=== PATIENT | female | born 1995 ===

== ENCOUNTER 2017-05-21 10:42 | Emergency (ER) | payer BC, OTHER ==
--- NOTE | 2017-05-21 11:29 | UC ---
Lower Extremity/Ankle HPI - HPI Summary HPI Summary: 3 weeks ogo L posterior ankle pain and Achilles tightness---no specific injury had been running alot prior to the development of the pain, not gait abnormalities - History of Current Complaint Chief Complaint: UCLowerExtremity Stated Complaint: ANKLE PAIN Time Seen by Provider: 05/21/17 11:24 Hx Obtained From: Patient Hx Last Menstrual Period: 04/24/17 ?: No Onset/Duration: Gradual Onset, Lasting Weeks - 3, Still Present Severity Initially: Mild Severity Currently: Mild Pain Intensity: 2 Pain Scale Used: 0-10 Numeric Aggravating Factor(s): Standing, Ambulation Alleviating Factor(s): Rest, Ice Able to Bear Weight: Yes - Allergies/Home Medications Allergies/Adverse Reactions: Allergies Allergy/AdvReac Type Severity Reaction Status Date / Time Gluten Meal Allergy Nausea Verified 05/21/17 10:46 bleach Allergy Rash Uncoded 05/21/17 10:46 Home Medications: Home Medications NK [No Home Medications Reported] 05/21/17 [History Confirmed 05/21/17] PMH/Surg Hx/FS Hx/Imm Hx Previously Healthy: Yes - Surgical History Surgical History: Yes Surgery Procedure, Year, and Place: kidney surgery at age 3 months - Family History Known Family History: Positive: None Family History: no cardiovascular issues reported in family lineage - Social History Occupation: Student Lives: With Family Alcohol Use: None Substance Use Type: None Smoking Status (MU): Never Smoked Tobacco Review of Systems Constitutional: Negative Skin: Negative Eyes: Negative ENT: Negative Respiratory: Negative Cardiovascular: Negative Gastrointestinal: Negative Genitourinary: Negative Motor: Negative Neurovascular: Negative Musculoskeletal: Myalgia - L posterior calf just above achellies, posterior lateral ankle as well Neurological: Negative Psychological: Negative All Other Systems Reviewed And Are Negative: Yes Physical Exam Triage Information Reviewed: Yes Appearance: Well-Appearing, No Pain Distress, Well-Nourished Vital Signs: Initial Vital Signs Temp 98 F 05/21/17 10:48 Pulse 67 05/21/17 10:48 Resp 16 05/21/17 10:48 BP 132/63 05/21/17 10:48 Pulse Ox 100 05/21/17 10:48 Vital Signs Reviewed: Yes Eye Exam: Normal Eyes: Positive: Conjunctiva Clear ENT Exam: Normal ENT: Positive: Normal ENT inspection, Hearing grossly normal. Negative: Nasal congestion, Nasal drainage, Trismus, Muffled/hoarse voice Dental Exam: Normal Neck exam: Normal Neck: Positive: Supple, Nontender Respiratory Exam: Normal Respiratory: Positive: Chest non-tender, No respiratory distress, No accessory muscle use Cardiovascular Exam: Normal Cardiovascular: Positive: RRR, Pulses Normal, Brisk Capillary Refill Musculoskeletal Exam: Normal Musculoskeletal: Positive: Strength Intact, ROM Intact, No Edema Neurological Exam: Normal Neurological: Positive: Alert, Muscle Tone Normal Psychological Exam: Normal Skin Exam: Normal Lower Extremity Course/Dx - Course Course Of Treatment: TEJINDER, Cam Boot, follow with ortho this comming week, NSAIDS - Differential Dx/Diagnosis Differential Diagnosis/HQI/PQRI: Cellulitis, DVT, Sprain, Strain, Tendonitis Provider Diagnoses: Left achellies tendonitis Discharge - Discharge Plan Condition: Stable Disposition: HOME Patient Education Materials: Ibuprofen (By mouth), Achilles Tendinitis (ED) Referrals: Ceci Sosa MD [Medical Doctor] - 1 Week
== END 2017-05-21 11:44 | disposition home or self-care (01) ==
LOC: UCEAST 10:42
DX: M76.62 Achilles tendinitis, left leg (principal)
CPT/HCPCS: 99202; G0463